=== PATIENT | male | born 1960 | race Caucasian/White ===

== ENCOUNTER 2016-12-11 14:33 | Emergency (ER) | payer SELFPAY ==
[~2016-12-11] VITALS: Ht 177.8 cm; Wt 79.4 kg
--- NOTE | 2016-12-11 14:44 | NUR ---
Pt ambulatory to bed 3.
[2016-12-11] MEDS ORDERED: methylPREDNISolone ACETATE 40 MG VIAL IM ONE (15:30)
[2016-12-11] MEDS ORDERED: predniSONE 20 MG TABLET PO ONE (15:30)
[2016-12-11] MEDS ORDERED: predniSONE 20 MG TABLET ONE (15:58)
[2016-12-11] MEDS ORDERED: methylPREDNISolone ACETATE 40 MG VIAL ONE (15:58)
--- NOTE | 2016-12-11 16:14 | NUR ---
pt d/c home is stable condition no ditress noted
[2016-12-11 16:18] VITALS: BP 117/91
== END 2016-12-11 16:23 | disposition home or self-care (01) ==
LOC: ER 14:38
DX: S62.603A Fracture of unspecified phalanx of left middle finger, initial encounter for closed fracture (principal); F10.20 Alcohol dependence, uncomplicated; F19.10 Other psychoactive substance abuse, uncomplicated; Z59.0 Homelessness; X58.XXXA Exposure to other specified factors, initial encounter; Y93.89 Activity, other specified; Y99.8 Other external cause status; Y92.89 Other specified places as the place of occurrence of the external cause; I10 Essential (primary) hypertension
CPT/HCPCS: 73140; A4663; J1030; J7512

== ENCOUNTER 2017-02-11 14:04 | Emergency (ER) | payer SELFPAY ==
[~2017-02-11] VITALS: Ht 177.8 cm; Wt 86.2 kg
--- NOTE | 2017-02-11 16:00 | NUR ---
Pt sleeping with no s/s of distress noted. Pt was easily aroused with verbal stimuli. Attempted to give pt ACI but pt stated he would like to talk with the ERMD again. Dr Pappas notified.
--- NOTE | 2017-02-11 16:16 | NUR ---
Pt eloped. Pt seen walking out of ER with steady gait.
== END 2017-02-11 16:17 | disposition left against medical advice (07) ==
LOC: ER 14:04
DX: G89.29 Other chronic pain (principal); M79.89 Other specified soft tissue disorders; F10.20 Alcohol dependence, uncomplicated; F12.10 Cannabis abuse, uncomplicated; F15.10 Other stimulant abuse, uncomplicated; I10 Essential (primary) hypertension; F20.9 Schizophrenia, unspecified; Z59.0 Homelessness
CPT/HCPCS: 73140; A4663

== ENCOUNTER 2018-03-03 07:11 | Emergency (ER) | payer MEDICAID ==
[~2018-03-03] VITALS: Ht 177.8 cm; Wt 79.4 kg
--- NOTE | 2018-03-03 08:02 | NUR ---
PATIENT IS AWAKE, ALERT, ORIENTED X4. AMBULATES WITH STEADY GAIT.
--- NOTE | 2018-03-03 08:44 | NUR ---
DC AND FOLLOW UP INSTRUCTIONS GIVEN AND EXPLAINED TO PATIENT WHO STATES HE UNDERSTANDS ALL INSTRUCTIONS. I GAVE HIM COLD WATER AND COLD JUICE.
[2018-03-03 08:48] VITALS: BP 152/88
== END 2018-03-03 08:50 | disposition home or self-care (01) ==
LOC: ER 07:11
DX: S09.90XA Unspecified injury of head, initial encounter (principal); F15.10 Other stimulant abuse, uncomplicated; F10.20 Alcohol dependence, uncomplicated; I10 Essential (primary) hypertension; F12.10 Cannabis abuse, uncomplicated; Z59.0 Homelessness; W22.8XXA Striking against or struck by other objects, initial encounter; Y93.89 Activity, other specified; Y92.89 Other specified places as the place of occurrence of the external cause; Y99.8 Other external cause status
CPT/HCPCS: 99281; A4663